=== PATIENT | female | born 1995 | race African-American/Black ===

== ENCOUNTER 2017-03-02 22:56 | Emergency (ER) | payer MEDICAID ==
[~2017-03-02] VITALS: Ht 175.3 cm; Wt 71.0 kg
[2017-03-03] MEDS ORDERED: FLUORESCEIN SODIUM 1MG/STRIP OP ONE (03:15)
[2017-03-03] MEDS ORDERED: BALANCED SALT IRRIG SOLN 15ML IO ONE (03:15)
[2017-03-03] MEDS ORDERED: TETRACAINE 0.5% OPHTH DROPS 4ML OP ONE (03:15)
[2017-03-03 03:39] LABS: HCG SCREEN NEGATIVE
[2017-03-03 05:38] VITALS: BP 124/62
== END 2017-03-03 05:40 | disposition home or self-care (01) ==
LOC: ER 22:56
DX: H57.12 Ocular pain, left eye (principal); J45.909 Unspecified asthma, uncomplicated; Y04.0XXA Assault by unarmed brawl or fight, initial encounter; Y07.03 Male partner, perpetrator of maltreatment and neglect; Y93.89 Activity, other specified; Y99.8 Other external cause status; Y92.89 Other specified places as the place of occurrence of the external cause
CPT/HCPCS: 70486; 84703; 99285; Z7610